=== PATIENT | female | born 1995 | race Caucasian/White ===

== ENCOUNTER 2023-05-24 01:35 | Emergency (ER) | payer BC, MEDICAID ==
[~2023-05-24] VITALS: Ht 157.5 cm; Wt 70.3 kg
[2023-05-24 01:40] VITALS: BP_SYST 105
[2023-05-24] MEDS ORDERED: KETOROLAC TROMETHAMINE 15 MG VIAL IM ONE (02:00)
[2023-05-24] MEDS ORDERED: DEXAMETHASONE SOD PHOSPHATE 10 MG/ML VIAL PO ONE (02:00)
[2023-05-24] MEDS ORDERED: IBUP-1969 PO (02:54)
== END 2023-05-24 02:59 | disposition home or self-care (01) ==
LOC: SED 01:35
DX: J06.9 Acute upper respiratory infection, unspecified (principal); J02.9 Acute pharyngitis, unspecified; Z79.899 Other long term (current) drug therapy
CPT/HCPCS: 99283; 86403; 36415; 81025; 96372; 87081; J1100; J1885

== ENCOUNTER 2023-08-11 18:51 | Emergency (ER) | payer BC ==
[~2023-08-11] VITALS: Ht 157.5 cm; Wt 70.8 kg
[~2023-08-11 18:51] MED LIST: IBUP-1969 PO
[2023-08-11 19:36] VITALS: BP_SYST 101; PULSE 114; RESP 20; TEMP 101.3; O2SAT 96
[2023-08-11] MEDS ORDERED: DEXAMETHASONE SOD PHOSPHATE 10 MG/ML VIAL IM ONE (20:15)
[2023-08-11] MEDS ORDERED: AMOXICILLIN/POTASSIUM CLAV 875 MG TABLET PO ONE (20:15)
[2023-08-11] MEDS ORDERED: IBUP-1971 PO (20:33)
[2023-08-11] MEDS ORDERED: AUG875 PO (20:33)
[2023-08-11 20:48] VITALS: BP_SYST 101; PULSE 114; RESP 20; TEMP 101.3; O2SAT 96
[2023-08-11] MEDS ORDERED: IBUPROFEN 800 MG TABLET ONE (20:54)
[2023-08-12] MEDS ORDERED: IBUPROFEN 800 MG TABLET PO ONE (06:30)
== END 2023-08-11 20:48 | disposition home or self-care (01) ==
LOC: SED 18:51
DX: J03.90 Acute tonsillitis, unspecified (principal); R13.10 Dysphagia, unspecified; Z79.899 Other long term (current) drug therapy
CPT/HCPCS: 99283; 96372; J1100

== ENCOUNTER → 2023-11-02 | Emergency (ER) | payer BC ==
[~2023-11-02] VITALS: Ht 157.5 cm; Wt 72.6 kg
[~2023-11-02] MED LIST changes: +AMOXICILLIN/POTASSIUM CLAV 875 MG TABLET ONE; +AMOXICILLIN/POTASSIUM CLAV 875 MG TABLET PO ONE; +AUG875 PO; +IBUP-1971 PO
[2023-11-02 23:01] VITALS: BP_SYST 122; PULSE 88; RESP 18; TEMP 98; O2SAT 98
[2023-11-02 23:11] VITALS: PULSE 88; RESP 18; TEMP 98.3; O2SAT 97
== END | disposition home or self-care (01) ==
LOC: SED 21:55
DX: J02.9 Acute pharyngitis, unspecified (principal); Z79.899 Other long term (current) drug therapy
CPT/HCPCS: 99283